=== PATIENT | male | born 1925 | race Caucasian/White ===

== ENCOUNTER 2017-03-07 16:29 | Emergency (ER) | payer MEDICARE, BC ==
[2017-03-07 15:06] LABS: BASOPHILS 0.8 %; BASOPHILS ABSOLUTE 0.06 10/3/uL (0.0-0.16); EOSINOPHILS 3.4 %; EOSINOPHILS ABSOLUTE 0.25 10/3/uL (0.0-0.53); ER CBC TAT 0 Hrs 13 Mins; HEMATOCRIT 41.9 % (40.0-51.0); HEMOGLOBIN 13.3 g/dL (13.6-17.8); IMMATURE GRANULOCYTES 0.1 %; IMMATURE GRANULOCYTES ABSOLUTE 0.01 10/3/uL (0.0-0.11); LYMPHOCYTES ABSOLUTE 0.96 10/3/uL (0.67-4.30); MANUAL DIFF NO %; MEAN CORPUS HGB CONC 31.7 g/dL (32.0-36.0); MEAN CORPUSCULAR HEMOGLOB 26.9 pg (26.0-34.0); MEAN CORPUSCULAR VOLUME 84.6 fL (80-100); MEAN PLATELET VOLUME 9.5 fL (9.2-13.0); MONOCYTES ABSOLUTE 0.74 10/3/uL (0.21-1.20); NEUTROPHILS 72.7 %; NEUTROPHILS ABSOLUTE 5.37 10/3/uL (2.02-8.40); PLATELET COUNT 90 10/3/uL (150-400); RBC DISTRIBUTION WIDTH 19.7 % (12.0-16.0); RED CELL COUNT 4.95 10/6/uL (4.7-6.1); WHITE BLOOD CELLS 7.4 10/3/uL (4.5-10.5)
[2017-03-07 15:14] LABS: CALCIUM, SERUM 8.9 MG/DL (8.5-10.4); CHLORIDE, SERUM 106 MMOL/L (96-112); CO2 (CARBON DIOXIDE) 26 MMOL/L (24-34); CREATININE 2.19 MG/DL (0.70-1.30); GFR AFRICAN AMERICAN 30 ML/MIN (>=60); GFR NON AFRICAN AMERICAN 26 ML/MIN (>=60); POTASSIUM, SERUM 4.2 MMOL/L (3.5-5.3); SODIUM, SERUM 142 MMOL/L (135-148)
[2017-03-07 15:15] LABS: BUN (BLOOD UREA NITROGEN) 34 MG/DL (6-23); GLUCOSE, SERUM 122 MG/DL (60-99)
[~2017-03-07 16:29] MED LIST: *UNABLE1; AMARYL2 PO; ASAB PO; ATEN50 PO; ATV.5 PO; AUG875 PO; AVALIDE1 TA1 PO; C5 PO; CHOLESTEROL MED PO; COREG3 PO; COREG6 PO; COZ25 PO; DEMA10T PO; DEMA20 PO; DIABETES MEDICATION PO; FLOMAX4 PO; FLONASE NAS; FLORASTOR250 MG PO; FORTAMET500 MG PO; HALF81 PO; IMDUR30 PO; IMDUR60 PO; ISOSORB DIN30 MG PO; JANTOVEN5 MG PO; KLOR-CON M2020 MEQ PO; L20 PO; LIPITOR40 PO; LOP25 PO; NORV10 PO; NORV5 PO; OMNICEF300 PO; P10 PO; PRAVACHOL40 MG PO; PRILO PO; PRILOSEC OTC20 MG PO; PROAIR HFA INH; SPIRIVA INH; TESS PO; TRIAMCINOLON0.025 % EX; TRIAMCINOLONE C80 GM T; TRIAMCINOLONE TOP; TRIDERM0.1 % TOP; VITAMIN D OTC PO; VITAMIN D1000 UNI1 PO; VITAMIN D31000 UNIT PO; ZITH250 PO; [UNRECOGNIZED DRUG - REMARK]
[2017-03-07 18:21] LABS: INTERNATIONAL NORMAL RATI 1.7 UNITS (-); PARTIAL THROMBO TIME 27.3 SEC (22.5-37.2); PROTIME (NOT ORD) 19.6 SEC (12.0-14.5)
[2017-06-12] MEDS ORDERED: COREG6 PO (17:14)
[2017-06-12] MEDS ORDERED: HALF81 PO (17:14)
[2017-06-12] MEDS ORDERED: CEFT2 PO (17:15)
[2017-06-12] MEDS ORDERED: ZOFRAN4 PO (17:16)
[2017-06-12] MEDS ORDERED: DEMA20 PO (17:16)
[2017-06-12] MEDS ORDERED: DEMADEX5 MG PO (17:16)
[2017-06-12] MEDS ORDERED: ISOSORB DIN30 MG PO (17:17)
[2017-06-12] MEDS ORDERED: DIOVAN40 MG PO (17:17)
[2017-06-12] MEDS ORDERED: ATV.5 PO (17:17)
[2017-06-12] MEDS ORDERED: PRAVACHOL40 MG PO (17:18)
[2017-06-12] MEDS ORDERED: FLONASE NAS (17:19)
[2017-06-12] MEDS ORDERED: ATRONASAL6 NAS (17:20)
[2017-06-12] MEDS ORDERED: PRILO PO (17:20)
[2017-07-12] MEDS ORDERED: COREG3 PO (11:26)
[2017-07-12] MEDS ORDERED: REM15 PO (12:06)
[2017-07-12] MEDS ORDERED: HUMALOG SC (12:08)
[2017-07-12] MEDS ORDERED: VOLTAREN1 % TOP (12:08)
[2017-07-12] MEDS ORDERED: MIRALAX POWDER1 PKT PO (12:09)
[2017-07-12] MEDS ORDERED: DSS PO (12:09)
[2017-07-12] MEDS ORDERED: 8 HOUR650 MG PO (12:10)
[2017-07-12] MEDS ORDERED: NEUR100 PO (13:11)
[2017-07-12] MEDS ORDERED: NEUR300 PO (13:12)
[2017-07-12] MEDS ORDERED: KAYEXUD PO (13:12)
== END 2017-03-07 18:28 | disposition home or self-care (01) ==
LOC: ER 16:29
PROVIDERS: Nurse Practitioner
DX: S81.801A Unspecified open wound, right lower leg, initial encounter (principal); I12.9 Hypertensive chronic kidney disease with stage 1 through stage 4 chronic kidney disease, or unspecified chronic kidney disease; N18.9 Chronic kidney disease, unspecified; Z79.82 Long term (current) use of aspirin; Z79.899 Other long term (current) drug therapy; X58.XXXA Exposure to other specified factors, initial encounter
CPT/HCPCS: 80048; 85025; 85610; 85730; 87040; 87070; 87077; 87186; 87205; 93971; 99285